=== PATIENT | female | born 1960 | race Caucasian/White ===

== ENCOUNTER → 2017-10-19 09:04 | Outpatient (CLI) | payer MEDICAID, SELFPAY ==
--- NOTE | 2017-10-19 09:07 | RAD_ITS ---
PROCEDURE: Double AIR-CONTRAST BARIUM ESOPHAGRAM WITH DOUBLE AIR BARIUM CONTRAST UPPER GI SERIES WITH KUB AND SINGLE BARIUM CONTRAST SMALL BOWEL series. Additional upright right lateral cine imaging of the cervical portion of the esophagus was obtained with a radiopaque pill and barium. REASON FOR EXAM: Female, 57 years old. Posterior chest pain after eating and drinking x6 months. Patient complains of cough. Gastroesophageal reflux disease. TECHNIQUE: After the administration of gas producing crystals, water, and barium solution orally, multiple images of the opacified gastrointestinal tract were obtained under fluoroscopic guidance. FLUOROSCOPY TIME (if supplied): 230 seconds total. COMPARISON: None available. TECHNIQUE AND FINDINGS: Initial chest and KUB images show cholecystectomy clips and appear nonacute without finding of free intraperitoneal air noted or finding of megacolon seen. Patient first ingested small swallow of barium which was observed fluoroscopically and showed no jim aspiration. After the administration of gas producing crystals, water, and barium solution orally, multiple images of the opacified gastrointestinal tract were obtained under fluoroscopic guidance. Esophagram: Examination of the esophagus appears normal without obstruction, diverticulum, esophageal dysmotility, extravasation of contrast, mucosal lesion such as ulcer/polyp or stricture identified. Small sliding-type hiatal hernia noted. Mild GE reflux noted without provocation. Subsequently, right lateral upright cine imaging was obtained of the cervical portion of esophagus for evaluation of real-time swallowing with barium pill and barium which showed severe difficulty on the patient's part of swallowing the barium pill indicating severe delay of oral phase. Patient tried raising her head without success but did not demonstrate a chin tuck maneuver. Upper GI series: Examination the stomach appears normal without ulceration mucosal thickening. Examination the duodenum is normal without ulceration mucosal thickening. Duodenal C-loop, air-contrast bulb and signal contrast bulb with and without compression views appear within normal limits. Mild GE reflux noted with without provocation. Small bowel series: Examination small bowel shows no mucosal lesion such as ulcer or polyp identified. Transit time is approximately 60 minutes which is within normal limits. Fluoroscopic spot images distal ileum and cecum appear within normal limits with and without compression. Fluoroscopic palpation of the entire small bowel is within normal limits. RAD/Small Bowel Series Only IMPRESSION: Mild sliding-type hiatal hernia and mild GE reflux with and without provocation. Patient had great difficulty swallowing a barium pill with delayed oral phase. Patient may benefit from speech pathology with chin tuck maneuver teaching. Clinical correlation recommended. Otherwise negative exams. Electronically Signed: Marlon Rae, at 17:45 EDT Tel , Service support ,
== END ==
PROVIDERS: Family Provider Family Medicine; PCP Family Medicine; Visit Provider Nurse Practitioner Family
DX: R13.10 Dysphagia, unspecified (principal); K21.9 Gastro-esophageal reflux disease without esophagitis
CPT/HCPCS: 74246; 74250

== ENCOUNTER → 2017-11-24 10:32 | Outpatient (CLI) | payer MEDICAID, SELFPAY ==
--- NOTE | 2017-11-24 10:34 | STE_ITS ---
Reason For Study: Chest Pain Stress Results Protocol: Dobutamine Stress Echo Maximum Predicted HR: 163 bpm Target HR: 139 bpm% Maximum Pre dicted HR: 84 % DurationHeart Rate Stage (mm:ss) (bpm) BPCom ment Baseline 74 131/76 No Chest Pain DSE 10 MCG 3:21 64 112/68No Chest Pain DSE 20 MCG 3:27 11 8 120/62No Chest Pain DSE 30 MCG 2:35 13 7 117/67No Chest Pain Recovery 85 140/63 No Chest Pain Stress Duration: 9:23 mm:ss Maximum Stress HR: 137 bpm Baseline Echocardiogram Findings Stress Echo Wall motion Data Resting WMIntermediate WMStress WM Resting Wall Motion Wall Motion Int. Wall Motion Stress All segments Normal. All segments Hyperkinetic. All segments Hyperkinetic. Ejection Fraction 55 %. Ejection Fraction 65 %. Ejection Fraction 75 %. Stress Results Arrhythmias: Rare PAC during infusion / recovery Stopped secondary to: Target heart rate achieved. EKG Data Baseline ECG: Normal Sinus Rhythm. Peak pharmacologic ECG: No Obvious ECG Changes. Symptoms with Stress No c/o chest discomfort during pharmacologic infusion / recovery. Interpretation Summary Negative (Adequate) Dobutamine Stress Echocardiogram Ordering Physician: Supriya Silveira Referring Physician: Ruben Cotter MD Performed By: Shyla Mar, RDCS, RVT
== END ==
PROVIDERS: Family Provider Family Medicine; PCP Family Medicine; Visit Provider Nurse Practitioner Family
DX: R07.9 Chest pain, unspecified (principal)
CPT/HCPCS: 93017; 93350; J7030; A4216

== ENCOUNTER 2019-05-22 01:19 | Emergency (ER) | payer MEDICARE, MEDICAID, SELFPAY ==
[2019-05-22 01:20] VITALS: BP 139/74; PULSE 81; RESP 16; TEMP 36.7; O2SAT 98; BMI 23.6
--- NOTE | 2019-05-22 01:27 | ED.RN ---
CALLED FOR EKG PER RN REQUEST, PULLED OLD EKGS FOR
--- NOTE | 2019-05-22 01:32 | RAD_ITS ---
HISTORY: PT WITH INTERMITTENT CHEST PAIN IN LEFT ARM AND BREAST WITH NAUSEA. ADDITIONAL HISTORY: None provided. COMPARISON: None TECHNIQUE: Frontal and lateral chest radiographs. Number of images including paperwork: 2 FINDINGS: LUNGS AND PLEURA: No consolidation, mass or pleural effusion. CARDIAC SILHOUETTE: Unremarkable. MEDIASTINUM AND ANNA: Unremarkable. UPPER ABDOMEN: Right upper quadrant surgical clips. SKELETON AND SOFT TISSUES: No acute findings. OTHER DEVICES AND HARDWARE: None. RAD/Chest PA and Lateral IMPRESSION: No acute cardiopulmonary abnormality. at 0153 Reported and signed by: Brandee Spears MD Electronically Signed: Brandee Spears MD at 1:53 EDT Tel , Service support ,
--- NOTE | 2019-05-22 01:32 | EKG12_ITS ---
Test Reason : CP Blood Pressure : / mmHG Vent. Rate : 075 BPM Atrial Rate : 075 BPM P-R Int : 124 ms QRS Dur : 080 ms QT Int : 366 ms P-R-T Axes : 078 084 062 degrees QTc Int : 408 ms Normal sinus rhythm with sinus arrhythmia Normal ECG Confirmed by TERESA CARBAJAL ([id number]), food expeditor RADHA MERAZ ([id number]) on 05/27/2019 8:51:22 AM Referred By: BASSEM Confirmed By:TERESA CARBAJAL
--- NOTE | 2019-05-22 01:33 | ED.DCSUM_ITS ---
History of Present Illness Chief Complaint: Chest Pain Informant: Patient Narrative: Patient stated for the last 3-1/2-hour she has had occasional twinges of left- sided sharp chest pain lasting a few seconds at a time. He had is happened a few times. She is never had this before. No injury. She felt nauseous when the pain came on. Currently she does not have any pain stated she had a negative stress echo last November. This was done because she was having shortness of breath secondary to COPD. She is not having any current symptoms. She had some heartburn and drank a glass of milk tonight. This helps some but she is requesting something further for heartburn. She is had a little bit of tightness in the left side of her chest as well. No home treatment. No pulmonary embolism risk factors. Cardiac risk factors include smoking only. No history of family history recent trips by car or plane. No history of diabetes or hypertension or high cholesterol. No family history of early coronary artery disease Past Medical History - Allergies and Home Meds Allergies/Adverse Reactions: Allergies ciprofloxacin [From Cipro] Allergy (Verified 05/22/19 01:19) Hives Sulfa (Sulfonamide Antibiotics) Allergy (Verified 05/22/19 01:19) Hives Primary Care Physician: Ole Nowak MD [Primary Care Provider] - Prior records reviewed: Yes Past Medical History: - - COPD Surgical History: - - Reviewed Smoking Status: Current every day smoker Alcohol: None Drugs: None Review of Systems General: Denies: Chills, Fever, Sweats Eyes: Denies: Visual changes - bilaterally, Diplopia ENT: Denies: Rhinorrhea, Sore throat Cardiovascular: Reports: Chest pain. Denies: Palpitations Respiratory: Denies: Dyspnea, Cough, Dyspnea on exertion Gastrointestinal: Reports: Nausea. Denies: Abdominal pain, Vomiting, Diarrhea, Melena, Hematochezia Genitourinary: Denies: Dysuria, Hematuria, Frequency Musculoskeletal: Denies: Back pain, Extremity Pain Skin: Denies: Rash, Wounds Neurological: Denies: Headache, Weakness, Numbness Physical Exam Vital Signs/Narrative: Vital Signs Temp Pulse Resp BP Pulse Ox 05/22/19 01:20 98.0 F 81 16 139/74 H 98 General: Well nourished, Well developed, No Acute Distress Head: Normocephalic, Atraumatic Eyes: Perrl, EOMI ENT: Moist mucous membranes, No rhinorrhea Neck: Supple, Nontender Cardiovascular: Regular rate, Regular rhythm, No murmurs Respiratory: No distress, CTA bilaterally, Chest nontender Abdomen: Soft, Nontender, Nondistended, Normal bowel sounds Back: Nontender, Normal Inspection Extremities: Nontender, No edema Skin: Normal color, No rash Neurological: Alert, Oriented x3, Cranial nerves II-XII grossly intact, Normal Strength, Normal Sensation Psychological: Normal affect, Normal Mood Diagnostic/Tx/Re-eval - Medical Decision Making KG shows sinus rhythm at a rate of 75. Sinus arrhythmia noted. No acute ischemic findings. Given dose of aspirin, GI cocktail, Zofran. Lab work and chest x-ray obtained. Chest x-ray negative. Lab work shows no acute abnormalities. Troponin is negative. On reevaluation patient resting comfortably without pain. Her heartburn is gone after symptoms. She is not having any chest pain. The sharp twinges never came back. Currently she has no tightness. I discussed admission to the hospital and repeat troponin levels and a delta fashion with the patient. She does not want this and refuses this. She understands that she can come back at any time and would like to be discharged. I have a low suspicion that this is cardiac in nature. They are very short- lived sharp pains. I do not think she has a pulmonary embolism. Her heart score is low at a 3. She had a negative stress echo last year. Feel she needs chest CT. She will return if she worsens in follow-up ED Disposition - Plan for ED Patient: Disposition: Home or Assisted Living Diagnosis: Chest pain due to CAD Instructions: CHEST PAIN, NonCardiac Referrals: Ole Nowak MD [Primary Care Provider] -
[2019-05-22 01:36] VITALS: O2SAT 99
[2019-05-22 01:39] LABS: Absolute Lymphocyte Count 5.33 X10^3/uL (0.83-4.51); Absolute Neutrophil Count 3.4 X10^3/uL (2.0-7.7); Basophil# 0.05 X10^3/uL; Basophil% 0.5 % (0-1); Eosinophil# 0.18 X10^3/uL; Eosinophils% 1.9 % (0-5); Hematocrit 44.3 % (37-47); Lymphocyte # 5.33 X10^3/ul (4.0); Lymphocyte % 55.2 % (19-41); Mean Corp Hgb Conc 33.9 g/dL (32-36); Mean Corpuscular Hgb 30.1 pg (27.0-32.0); Mean Corpuscular Volume 88.8 fL (81-99); Mean Platelet Vol. 9.1 fl (6.2-12.0); Monocyte# 0.68 X10^3/uL; NRBC Flagged by Analyzer 0 % (0-5); Neutrophil # 3.38 X10^3/uL (2.7-7.7); POSITIVE DIFFERENTIAL YES; Platelet Count 249 K/mm3 (150-450); RBC Distribution Width CV 13.2 % (11.6-14.6); RBC Distribution Width SD 43.3 fl (35.1-43.9); Red Blood Count 4.99 M/mm3 (4.2-5.4); White Blood Count 9.7 K/mm3 (4.4-11.0)
[2019-05-22] MEDS: Mag Hydrox/Al Hydrox/Simeth 30 ML UDC PO (01:54)
[2019-05-22] MEDS: Aspirin 81 MG TAB.CHEW 324 MG PO (01:54)
[2019-05-22] MEDS: Ondansetron 4 MG/2 ML Vial IV (01:54)
[2019-05-22 01:55] LABS: Differential Indicated SCAN CRITERIA MET
[2019-05-22 01:59] LABS: Anion Gap 6 (5-15); BUN 25 mg/dL (7-18); BUN/Creat Ratio 39.2 RATIO (10-20); Calcium,Total 9.4 mg/dL (8.5-10.1); Chloride 106 mmol/L (98-107); Creatinine, Serum 0.64 mg/dL (0.55-1.02); EST Glomerular Filtration Rate 101 mL/min (>60); Est Glom Filt Rate - Afr Amer 123 mL/min (>60); Estimated Creatinine Clearance 81.73 ml/min; Glucose 93 mg/dL (74-106); Potassium 3.8 mmol/L (3.5-5.1); Sodium Level 139 mmol/L (136-145)
[2019-05-22 02:03] LABS: Differential Comment SCANNED
[2019-05-22 02:28] VITALS: BP 108/63; PULSE 70; RESP 18; O2SAT 97
== END 2019-05-22 02:28 | disposition home or self-care (01) ==
PROVIDERS: Emergency Provider Emergency Medicine; Family Provider Family Medicine; PCP Family Medicine
DX: I25.10 Atherosclerotic heart disease of native coronary artery without angina pectoris (principal); J44.9 Chronic obstructive pulmonary disease, unspecified; Z88.1 Allergy status to other antibiotic agents; Z88.2 Allergy status to sulfonamides
CPT/HCPCS: 71046; 80048; 84484; 85025; 93005; 96374; 99284; J2405

== ENCOUNTER → 2022-12-02 | Outpatient (CLI) | payer MEDICARE, MEDICAID, SELFPAY ==
--- NOTE | 2022-12-02 | BLA_PTH ---
PATIENT: CHARITY MURILLO LOC: [facility] U#:[id number] AGE/SX: 62/F ROOM: RE12/02/[address]: Dr. Sunita Ang MD : 1960 BED: DIS: 12/02/2022 SPEC #: [id number] RECD: 12/02/22 15:12 STATUS: PAMELLA RESuly #: [id number] AMADO: 12/02/22 00:[address]: Sunita Ang DEPT: SURGICAL PATHOLOGY RECD BY: Nhan Arguelles ENTERED: 12/05/22 10:09 SP TYPE: BLADDER BX OTHR DR: Dr. Ole Nowak MD [facility] Tissues: A - Urinary bladder, NOS B - Urinary bladder, NOS Procedures: Surgery Specimen Level IV HEADER OPERATION: Urethral dilation, cystoscopy, bladder biopsy PRE-OP DIAGNOSIS: Overactive bladder, nocturia, mixed incontinence TISSUE SUBMITTED: A ? Left lateral bladder wall consistent with squamous metaplasia, B ? Posterior bladder wall MICROSCOPIC DIAGNOSIS A. Left lateral bladder, urinary bladder wall, biopsy: Fragments of squamous mucosa with associated mild chronic inflammation. Hyperkeratosis, mild. B. Posterior bladder wall, biopsy: Minimal chronic inflammation. AM:sudha 12/06/2022 MICROSCOPIC DESCRIPTION Slides are reviewed. GROSS DESCRIPTION A - Received in fixative is one container labeled with the patient's name and designated left lateral wall bladder. The specimen consists of two irregular fragments of wilson soft tissue that in aggregate measure 0.2 x 0.2 x 0.1 cm. The specimen is totally submitted in one cassette. B - Received in fixative is one container labeled with the patient's name and designated posterior bladder wall. The specimen consists of three irregular fragments of wilson soft tissue that in aggregate measure 0.5 x 0.1 x 0.1 cm. The specimen is totally submitted in one cassette. / SJ:sudha 12/05/2022 TC:3 CPT: 41082 x2
== END | disposition home or self-care (01) ==
LOC: LABSPEC 15:53
PROVIDERS: PCP Family Medicine; Referring Provider Urology; Visit Provider Urology
DX: N39.46 Mixed incontinence (principal); N32.81 Overactive bladder
CPT/HCPCS: 88305

== ENCOUNTER → 2023-03-09 | Outpatient (CLI) | payer MEDICARE, MEDICAID, SELFPAY ==
--- NOTE | 2023-03-09 | BLA_PTH ---
PATIENT: CHARITY MURILLO LOC: [facility] U#:[id number] AGE/SX: 62/F ROOM: RE03/09/[address]: Dr. Sunita Ang MD : 1960 BED: DIS: 03/09/2023 SPEC #: [id number] RECD: 03/09/23 15:06 STATUS: PAMELLA MALDONADO #: [id number] AMADO: 03/09/23 00:[address]: Sunita Ang DEPT: SURGICAL PATHOLOGY RECD BY: Nhan Arguelles ENTERED: 03/10/23 08:00 SP TYPE: BLADDER BX OTHR DR: Dr. Ole Nowak MD [facility] Tissues: A - Urinary bladder, NOS B - Urinary bladder, NOS Procedures: Gen Path Consultation (on slides) Surgery Specimen Level IV HEADER OPERATION: Cystoscopy, bladder biopsy with fulguration PRE-OP DIAGNOSIS: Other specified disorders of bladder TISSUE SUBMITTED: A - Bladder biopsy, B - Bladder biopsy #2 MICROSCOPIC DIAGNOSIS A. Urinary bladder, biopsy: Consistent with papillary carcinoma with squamous differentiation. See comment. B. Urinary bladder, biopsy #2: Consistent with papillary carcinoma with squamous differentiation. See comment. AM:sudha 03/23/2023 COMMENT A & B. Immunohistochemistry ([id number]) supports the above diagnosis. This case is sent in consultation to Dr. Sullivan of [facility] and the above diagnosis is rendered. Complete consultation is in EMR. MICROSCOPIC DESCRIPTION Slides are reviewed. GROSS DESCRIPTION A - Received in fixative is one container labeled with the patient's name and designated bladder biopsy. The specimen consists of multiple irregular fragments of light wilson soft tissue that in aggregate measure 2.0 x 0.7 x 0.1 cm. The specimen is totally submitted in one cassette. B - Received in fixative is one container labeled with the patient's name and designated bladder biopsy #2. The specimen consists of multiple irregular fragments of light wilson soft tissue that in aggregate measure 0.6 x 0.3 x 0.1 cm. The specimen is totally submitted in one cassette. / AM:sudha 03/10/2023 TC:0 CPT: 98355 x2
--- NOTE | 2023-03-09 | IMM_PTH ---
PATIENT: CHARITY MURILLO LOC: [facility] U#:[id number] AGE/SX: 62/F ROOM: RE03/09/[address]: Dr. Sunita Ang MD : 1960 BED: DIS: 03/09/2023 SPEC #: [id number] RECD: 03/13/23 12:27 STATUS: PAMELLA RESuly #: [id number] AMADO: 03/09/23 00:[address]: Sunita Ang DEPT: IMMUNOHISTOCHEMISTRY RECD BY: Selma Powell ENTERED: 03/13/23 12:29 SP TYPE: IMMUNO OTHR DR: Dr. Ole Nowak MD Tissues: A - Urinary bladder, NOS B - Urinary bladder, NOS Procedures: CK20 (add) KI-67 (add) P16 (add) P53 (add) 34BE12 (add) P40 (add) CK7 (initial) PHYSICIAN & INSTITUTION [place] [id number] SPECIMEN INFORMATION: Tissue Source: A - Bladder biopsy, B - Bladder biopsy #2 Clinical Info: Bladder disorder Specimen Number: [id number] A & B CPT code: 06583 x2, 66260 x12 METHODOLOGY: Deparaffinized sections of prefer/formalin-fixed tissue or PAP/DQ stained slides are incubated with monoclonal/polyclonal antibodies/oligonucleotide probes. Localization is made via biotin free immunoperoxidase method. Appropriate controls are performed and reacted as expected. Results on target cell population are indicated in the following table: RESULTS: ANTIBODY / CLONE RESULT Block A CK7 (OV-TL12/30) positive CK20 (KS20.8) negative 34BE12 (34BE12) positive P40 (BC28) positive P16 (E6H4) positive, focal, patchy P53 (DO-7) positive, wild type Ki-67 (30-9) positive, 60% Block B CK7 (OV-TL12/30) negative CK20 (KS20.8) negative 34BE12 (34BE12) positive P40 (BC28) positive P16 (E6H4) negative P53 (DO-7) positive, wild type Ki-67 (30-9) positive, 85% These tests were developed and their performance characteristics determined by [facility]. They may not have been cleared or approved by the U.S. Food and Drug Administration. The FDA has determined that such clearance or approval is not necessary. The above immunohistochemical/dualISH markers are ordered and reviewed by the Pathologist. INTERPRETATION: A. Bladder, biopsy: Consistent with papillary carcinoma with squamous differentiation. B. Bladder, biopsy #2: Consistent with papillary carcinoma with squamous differentiation. AM:sudha 03/24/2023
== END | disposition home or self-care (01) ==
LOC: LABSPEC 15:50
PROVIDERS: PCP Family Medicine; Referring Provider Urology; Visit Provider Urology
DX: N32.89 Other specified disorders of bladder (principal)
CPT/HCPCS: 88305; 88325; 88341; 88342